=== PATIENT | female | born 1970 | race Caucasian/White ===

== ENCOUNTER 2019-01-16 00:28 | Emergency (ER) | payer OTHER ==
[~2019-01-16] VITALS: Ht 162.6 cm; Wt 105.2 kg
[2019-01-16 00:33] VITALS: Ht 162.6 cm; Wt 105.2 kg
[2019-01-16 03:04] VITALS: BP 121/52
== END 2019-01-16 03:00 | disposition home or self-care (01) ==
LOC: ED 00:28
DX: J45.901 Unspecified asthma with (acute) exacerbation (principal); J18.9 Pneumonia, unspecified organism; Z76.0 Encounter for issue of repeat prescription; Z90.49 Acquired absence of other specified parts of digestive tract
CPT/HCPCS: J7512; J7620

== ENCOUNTER 2019-02-15 12:30 | Emergency (ER) | payer OTHER ==
[~2019-02-15] VITALS: Ht 167.6 cm; Wt 106.1 kg
[2019-02-15 12:58] VITALS: Ht 167.6 cm; Wt 106.1 kg
[2019-02-15 15:31] VITALS: BP 145/74
== END 2019-02-15 15:31 | disposition home or self-care (01) ==
LOC: ED 12:30
DX: H10.11 Acute atopic conjunctivitis, right eye (principal); R09.81 Nasal congestion; J45.909 Unspecified asthma, uncomplicated; Z90.49 Acquired absence of other specified parts of digestive tract

== ENCOUNTER 2019-11-20 23:35 | Emergency (ER) | payer OTHER ==
[~2019-11-20] VITALS: Ht 167.6 cm; Wt 113.9 kg
[2019-11-20 23:39] VITALS: Ht 167.6 cm; Wt 113.9 kg
[2019-11-21 04:15] VITALS: BP 141/73
== END 2019-11-21 04:15 | disposition home or self-care (01) ==
LOC: ED 23:35
DX: J10.1 Influenza due to other identified influenza virus with other respiratory manifestations (principal); Z90.49 Acquired absence of other specified parts of digestive tract
CPT/HCPCS: 87804; J7512; J7613; J7644

== ENCOUNTER 2019-11-23 01:49 | Emergency (ER) | payer OTHER ==
[2019-11-23 01:55] VITALS: Ht 167.6 cm
[2019-11-23 06:17] VITALS: BP 140/72
== END 2019-11-23 06:17 | disposition home or self-care (01) ==
LOC: ED 01:49
DX: J40 Bronchitis, not specified as acute or chronic (principal); J45.909 Unspecified asthma, uncomplicated; Z90.49 Acquired absence of other specified parts of digestive tract
CPT/HCPCS: J2920; J7620